=== PATIENT | male | born 1955 | race Hispanic/Latino ===

== ENCOUNTER 2018-08-24 16:13 | Inpatient (IN) | payer BC, SELFPAY ==
[2018-08-24 16:48] LABS: Absolute Monocytes 1.2 K/uL (0.1-1.3); Basophils % 0.6 % (0-1.3); Eosinophils % 0.9 % (0-4.4); Hematocrit 43.2 % (39.6-49.0); Lymphocytes % 12.7 % (15.3-44.8); MCH 31.3 pg (27.0-35.0); MCV 92.3 fL (80-100); MPV 7.7 fL (7.6-11.3); Monocytes % 7.6 % (3.3-12.3); RBC Red Blood Cell Count 4.69 M/uL (4.33-5.43)
[2018-08-24 16:52] LABS: Protime INR 1.04
--- NOTE | 2018-08-24 17:09 | RAD REPORT ---
EXAM DESCRIPTION: RAD - Chest Single View - 08/24/2018 4:42 pm CLINICAL HISTORY: Cough COMPARISON: January 2010 TECHNIQUE: AP portable chest image was obtained 1638 hours . FINDINGS: No peripheral mass consolidation. Lung markings are mildly prominent but not clearly diffe rent from comparison. Heart size within normal limits, decreased from prior study. Vasculature has di minished in prominence over this long interval. Trachea is midline. No measurable pleural effusion an d no pneumothorax. No gross bony abnormality seen. No acute aortic findings suspected. IMPRESSION: No acute cardiopulmonary process. Prominent interstitial pattern has not changed. Heart size and vasculature have decreased in prominence since 2009.
[2018-08-24 17:10] LABS: Albumin 4.5 g/dL (3.4-5.0); Bilirubin Direct 0.1 mg/dL (0-0.2); Bilirubin Total 0.3 mg/dL (0.2-1.0); Magnesium 2.7 mg/dL (1.8-2.4); Potassium 3.9 mmol/L (3.5-5.1); Protein, Total 8.9 g/dL (6.4-8.2); Troponin (Emerg Dept Use Only) 0.09 ng/mL (0.0-0.045)
--- NOTE | 2018-08-24 17:34 | ER ---
Nurse's Notes [facility] Name: Zac Sharma Age: 63 yrs Sex: Male : 1955 Arrival Date: 08/24/2018 Time: 16:17 Bed 6 Private MD: Diagnosis: Heat exhaustion, unspecified;Unspecified kidney failure;Volume depletion;Elevated white blood cell count Presentation: 08/24 16:18 Presenting complaint: EMS states: Was working out in yard and began to feel sick, was ph found by EMS inside on the floor, denies LOC, reports 1 episode of vomiting and cramping to roscoe legs, initial BP 80s/50s, BGL 143, 500 NS bolus given, pt reports having "heat exhaustion" before and states that symptoms feel similar. Transition of care: patient was not received from another setting of care. Onset of symptoms was August 24, 2018. Risk Assessment: Do you want to hurt yourself or someone else? Patient reports no desire to harm self or others. Initial Sepsis Screen: Does the patient meet any 2 criteria? No. Patient's initial sepsis screen is negative. Does the patient have a suspected source of infection? No. Patient's initial sepsis screen is negative. Care prior to arrival: None. 16:18 Method Of Arrival: EMS: [facility] ph 16:18 Acuity: BILL 3 ph Historical: - Allergies: 16:23 No Known Allergies; ph - Home Meds: 16:23 None [Active]; ph - PMHx: 16:23 None; ph - PSHx: 16:23 None; ph - Immunization history:: Adult Immunizations unknown. - Social history:: Smoking status: Patient/guardian denies using tobacco. - Ebola Screening: : No symptoms or risks identified at this time. - Family history:: not pertinent. Screenin:24 Abuse screen: Denies threats or abuse. Denies injuries from another. Nutritional aj screening: No deficits noted. Tuberculosis screening: No symptoms or risk factors identified. Fall Risk None identified. Assessment: 16:38 General: Appears in no apparent distress. uncomfortable, Behavior is calm, cooperative, ph appropriate for age. Pain: Complains of pain in right leg and left leg Quality of pain is described as crampy. Neuro: Level of Consciousness is awake, alert, obeys commands, Oriented to person, place, time, situation. Cardiovascular: Capillary refill < 3 seconds Patient's skin is warm and dry. Respiratory: Airway is patent Respiratory effort is even, unlabored. GI: Reports nausea, vomiting, Patient currently denies abdominal pain, diarrhea. Derm: Skin is intact, Skin is clammy, Skin temperature is cool. Musculoskeletal: Musculoskeletal: Circulation, motion, and sensation intact. Range of motion: intact in all extremities. 19:11 Reassessment: Patient appears in no apparent distress at this time. No changes from previously documented assessment. Patient and/or family updated on plan of care and expected duration. Pain level reassessed. Patient is alert, oriented x 3, equal unlabored respirations, skin warm/dry/pink. Patient denies pain at this time. Patient states feeling better. Vital Signs: 16:21 BP 118 / 54; Pulse 79; Resp 18; Temp 98.5; Pulse Ox 98% on R/A; Weight 79.38 kg; Height ph 5 ft. 6 in. (167.64 cm); 17:29 BP 108 / 68; Pulse 72; Resp 16; Pulse Ox 99% on R/A; aj 19:11 BP 133 / 79; Pulse 91; Resp 18; Pulse Ox 99% on R/A; aj 20:24 BP 137 / 79; Pulse 69; Resp 16; Pulse Ox 99% on R/A; aj 16:21 Body Mass Index 28.25 (79.38 kg, 167.64 cm) ph ED Course: 16:17 Patient arrived in ED. ph 16:18 Noah Craig MD is Attending Physician. mina 16:21 Triage completed. ph 16:23 Arm band placed on. ph 16:34 Belkis Almtan, RN is Primary Nurse. aj 16:41 X-ray completed. Portable x-ray completed in exam room. Patient tolerated procedure az well. 16:41 EKG done, by i&c technician. reviewed by Noah Craig MD. sm3 16:42 XRAY Chest (1 view) In Process Unspecified. EDMS 16:45 Maintain EMS IV. Site clean \\T\\ dry. Gauge \\T\\ site: 20 to left AC. Flushed left aj antecubital Patient transferred, IV remains in place. intact. 17:31 Marito Encarnacion MD is Hospitalizing Provider. mina 17:[address] via stretcher. nj 17:59 CT Stone Protocol In Process Unspecified. EDMT 17:59 CT completed. Patient tolerated procedure well. Patient moved back from CT. nj 20:24 Patient has correct armband on for positive identification. Bed in low position. aj 20:27 No provider procedures requiring assistance completed. aj Administered Medications: 16:44 Drug: NS 0.9% 1000 ml Route: IV; Rate: 1 bolus; Site: left antecubital; aj 20:29 Follow up: Response: No adverse reaction; IV Status: Completed infusion; IV Intake: aj 1000ml 16:44 Drug: NS 0.9% 1000 ml Route: IV; Rate: 1 bolus; Site: left antecubital; aj 20:29 Follow up: Response: No adverse reaction; IV Status: Completed infusion; IV Intake: aj 1000ml 17:35 Drug: Pepcid 20 mg Route: PO; aj 20:28 Follow up: Response: No adverse reaction aj 17:41 Drug: Aspirin 162 mg Route: PO; aj 20:28 Follow up: Response: No adverse reaction aj 17:41 Drug: Lovenox 60 mg Route: Sub-Q; Site: abdomen; aj 20:28 Follow up: Response: No adverse reaction kylah 17:45 CANCELLED (route changed): Pepcid 20 mg IVP once aj Intake: 20:29 IV: 1000ml; Total: 1000ml. aj 20:29 IV: 1000ml; Total: 2000ml. kylah Outcome: 16:45 Admitted to Med/surg accompanied by tech, via wheelchair, room 215, Report called to kylah Thorne RN 16:45 Condition: good 16:45 Instructed on the need for admit, Demonstrated understanding of instructions. 17:33 Decision to Hospitalize by Provider. mina 20:30 Patient left the ED. kylah 20:45 Patient left the ED. ms Signatures: Dispatcher [employer] Belkis Blanco RN Noah Pratt MD MD cha Solis, Maria ms Hall, Patricia, RN RN [facility], [facility] Keerthi Lagunas
--- NOTE | 2018-08-24 17:34 | EDPHYS ---
Physician Documentation [facility] Name: Zac Sharma Age: 63 yrs Sex: Male : 1955 Arrival Date: 08/24/2018 Time: 16:17 Bed 6 Private MD: ED Physician Noah Craig HPI: 08/24 17:30 This 63 yrs old Male presents to ER via EMS with complaints of Heat Exposure. mina 17:30 over heated. The patient presents with dizziness, feeling faint, generalized weakness, mina lightheadedness. Onset: The symptoms/episode began/occurred just prior to arrival, today. Context: occurred outdoors. Modifying factors: The symptoms are alleviated by nothing, the symptoms are aggravated by nothing. Associated signs and symptoms: Pertinent positives: abdominal pain, nausea, near-syncope, vomiting. Severity of symptoms: At their worst the symptoms were moderate. Historical: - Allergies: 16:23 No Known Allergies; ph - Home Meds: 16:23 None [Active]; ph - PMHx: 16:23 None; ph - PSHx: 16:23 None; ph - Immunization history:: Adult Immunizations unknown. - Social history:: Smoking status: Patient/guardian denies using tobacco. - Ebola Screening: : No symptoms or risks identified at this time. - Family history:: not pertinent. ROS: 17:30 Constitutional: Negative for fever, chills, and weight loss, Eyes: Negative for injury, mina pain, redness, and discharge, ENT: Negative for injury, pain, and discharge, Neck: Negative for injury, pain, and swelling, Cardiovascular: Negative for chest pain, palpitations, and edema, Respiratory: Negative for shortness of breath, cough, wheezing, and pleuritic chest pain, Abdomen/GI: Negative for abdominal pain, nausea, vomiting, diarrhea, and constipation, Back: Negative for injury and pain, : Negative for injury, bleeding, discharge, and swelling, MS/Extremity: Negative for injury and deformity, Skin: Negative for injury, rash, and discoloration, Neuro: Negative for headache, weakness, numbness, tingling, and seizure, Psych: Negative for depression, anxiety, suicide ideation, homicidal ideation, and hallucinations, Allergy/Immunology: Negative for hives, rash, and allergies, Endocrine: Negative for neck swelling, polydipsia, polyuria, polyphagia, and marked weight changes, Hematologic/Lymphatic: Negative for swollen nodes, abnormal bleeding, and unusual bruising. Exam: 17:31 Constitutional: This is a well developed, well nourished patient who is awake, alert, mina and in no acute distress. Head/Face: Normocephalic, atraumatic. Eyes: Pupils equal round and reactive to light, extra-ocular motions intact. Lids and lashes normal. Conjunctiva and sclera are non-icteric and not injected. Cornea within normal limits. Periorbital areas with no swelling, redness, or edema. ENT: Nares patent. No nasal discharge, no septal abnormalities noted. Tympanic membranes are normal and external auditory canals are clear. Oropharynx with no redness, swelling, or masses, exudates, or evidence of obstruction, uvula midline. Mucous membranes moist. Neck: Trachea midline, no thyromegaly or masses palpated, and no cervical lymphadenopathy. Supple, full range of motion without nuchal rigidity, or vertebral point tenderness. No Meningismus. Chest/axilla: Normal chest wall appearance and motion. Nontender with no deformity. No lesions are appreciated. Cardiovascular: Regular rate and rhythm with a normal S1 and S2. No gallops, murmurs, or rubs. Normal PMI, no JVD. No pulse deficits. Respiratory: Lungs have equal breath sounds bilaterally, clear to auscultation and percussion. No rales, rhonchi or wheezes noted. No increased work of breathing, no retractions or nasal flaring. Abdomen/GI: Soft, non-tender, with normal bowel sounds. No distension or tympany. No guarding or rebound. No evidence of tenderness throughout. Back: No spinal tenderness. No costovertebral tenderness. Full range of motion. Male : Normal genitalia with no discharge or lesions. Skin: Warm, dry with normal turgor. Normal color with no rashes, no lesions, and no evidence of cellulitis. MS/ Extremity: Pulses equal, no cyanosis. Neurovascular intact. Full, normal range of motion. Neuro: Awake and alert, GCS 15, oriented to person, place, time, and situation. Cranial nerves II-XII grossly intact. Motor strength 5/5 in all extremities. Sensory grossly intact. Cerebellar exam normal. Normal gait. Psych: Awake, alert, with orientation to person, place and time. Behavior, mood, and affect are within normal limits. Vital Signs: 16:21 BP 118 / 54; Pulse 79; Resp 18; Temp 98.5; Pulse Ox 98% on R/A; Weight 79.38 kg; Height ph 5 ft. 6 in. (167.64 cm); 17:29 BP 108 / 68; Pulse 72; Resp 16; Pulse Ox 99% on R/A; aj 19:11 BP 133 / 79; Pulse 91; Resp 18; Pulse Ox 99% on R/A; aj 20:24 BP 137 / 79; Pulse 69; Resp 16; Pulse Ox 99% on R/A; aj 16:21 Body Mass Index 28.25 (79.38 kg, 167.64 cm) ph MDM: 16:18 Patient medically screened. [facility] 08/24 16:19 Order name: Basic Metabolic Panel [facility] 08/24 16:19 Order name: CBC with Diff [facility] 08/24 16:19 Order name: LFT's [facility] 08/24 16:19 Order name: Magnesium [facility] 08/24 16:19 Order name: NT PRO-BNP; Complete Time: 17:17 [facility] 08/24 16:19 Order name: PT-INR; Complete Time: 17:17 [facility] 08/24 16:19 Order name: Troponin (emerg Dept Use Only); Complete Time: 17:17 [facility] 08/24 16:19 Order name: Lipase; Complete Time: 17:17 [facility] 08/24 16:20 Order name: Basic Metabolic Panel; Complete Time: 17:17 [facility] 08/24 16:20 Order name: CBC with Automated Diff; Complete Time: 17:17 [facility] 08/24 16:20 Order name: Liver (Hepatic) Function; Complete Time: 17:17 [facility] 08/24 16:20 Order name: Magnesium; Complete Time: 17:17 [facility] 08/24 17:56 Order name: CBC with Automated Diff [facility] 08/24 17:56 Order name: CBC with Automated Diff [facility] 08/24 16:19 Order name: XRAY Chest (1 view); Complete Time: 17:17 [facility] 08/24 17:28 Order name: CT Stone Protocol [facility] 08/24 17:38 Order name: Echo with Doppler [facility] 08/24 17:56 Order name: CBC with Automated Diff [facility] 08/24 17:56 Order name: Comprehensive Metabolic Panel [facility] 08/24 17:56 Order name: Comprehensive Metabolic Panel [facility] 08/24 17:56 Order name: Comprehensive Metabolic Panel [facility] 08/24 17:56 Order name: Urinalysis [facility] 08/24 17:57 Order name: Urinalysis W/Microscopic [facility] 08/24 20:43 Order name: Urine Dipstick--Ancillary (enter results) ms 08/24 16:19 Order name: EKG; Complete Time: 16:20 [facility] 08/24 16:19 Order name: Cardiac monitoring; Complete Time: 16:45 [facility] 08/24 16:19 Order name: EKG - Nurse/Tech; Complete Time: 16:45 [facility] 08/24 16:19 Order name: IV Saline Lock; Complete Time: 16:45 [facility] 08/24 16:19 Order name: Labs collected and sent; Complete Time: 16:45 [facility] 08/24 16:19 Order name: O2 Per Protocol; Complete Time: 16:45 [facility] 08/24 16:19 Order name: O2 Sat Monitoring; Complete Time: 16:45 [facility] 08/24 17:38 Order name: CONS Physician Consult [facility] 08/24 17:38 Order name: CONS Physician Consult [facility] 08/24 17:56 Order name: Renal EDFL Administered Medications: 16:44 Drug: NS 0.9% 1000 ml Route: IV; Rate: 1 bolus; Site: left antecubital; aj 20:29 Follow up: Response: No adverse reaction; IV Status: Completed infusion; IV Intake: aj 1000ml 16:44 Drug: NS 0.9% 1000 ml Route: IV; Rate: 1 bolus; Site: left antecubital; aj 20:29 Follow up: Response: No adverse reaction; IV Status: Completed infusion; IV Intake: aj 1000ml 17:35 Drug: Pepcid 20 mg Route: PO; aj 20:28 Follow up: Response: No adverse reaction aj 17:41 Drug: Aspirin 162 mg Route: PO; aj 20:28 Follow up: Response: No adverse reaction aj 17:41 Drug: Lovenox 60 mg Route: Sub-Q; Site: abdomen; aj 20:28 Follow up: Response: No adverse reaction aj 17:45 CANCELLED (route changed): Pepcid 20 mg IVP once aj Disposition: 08/24/18 17:33 Hospitalization ordered by Marito Encarnacion for Inpatient Admission. Preliminary diagnosis are Heat exhaustion, unspecified, Unspecified kidney failure, Volume depletion, Elevated white blood cell count. - Bed requested for Telemetry/MedSurg (Inpatient). - Status is Inpatient Admission. ms - Condition is Stable. - Problem is new. - Symptoms have improved. UTI on Admission? No Signatures: Dispatcher [employer] EDMS MeekNedUte, INTERNET SYSTEMS ADMINISTRATOR-C INTERNET SYSTEMS ADMINISTRATOR-Belkis Luke, RN RN Noah Thomas MD MD cha Sanford, Demi ds1 Bre Rogel ms Silvana Masters RN RN Lyly Toth RN RN cg Corrections: (The following items were deleted from the chart) 17:45 17:28 Pepcid 20 mg IVP once ordered. [facility] 19:32 17:33 Hospitalization Ordered by Marito Encarnacion MD for Inpatient Admission. Preliminary cg diagnosis is Heat exhaustion, unspecified; Unspecified kidney failure; Volume depletion; Elevated white blood cell count. Bed requested for Telemetry/MedSurg (Inpatient). Status is Inpatient Admission. Condition is Stable. Problem is new. Symptoms have improved. UTI on Admission? No. mina 20:17 19:32 08/24/2018 17:33 Hospitalization Ordered by Marito Encarnacion MD for Inpatient ds1 Admission. Preliminary diagnosis is Heat exhaustion, unspecified; Unspecified kidney failure; Volume depletion; Elevated white blood cell count. Bed requested for Telemetry/MedSurg (Inpatient). Status is Inpatient Admission. Condition is Stable. Problem is new. Symptoms have improved. UTI on Admission? No. cg 20:30 20:17 08/24/2018 17:33 Hospitalization Ordered by Marito Encarnacion MD for Inpatient aj Admission. Preliminary diagnosis is Heat exhaustion, unspecified; Unspecified kidney failure; Volume depletion; Elevated white blood cell count. Bed requested for Telemetry/MedSurg (Inpatient). Status is Inpatient Admission. Condition is Stable. Problem is new. Symptoms have improved. UTI on Admission? No. ds1 20:45 20:30 08/24/2018 17:33 Hospitalization Ordered by Marito Encarnacion MD for Inpatient ms Admission. Preliminary diagnosis is Heat exhaustion, unspecified; Unspecified kidney failure; Volume depletion; Elevated white blood cell count. Bed requested for Telemetry/MedSurg (Inpatient). Status is Inpatient Admission. Condition is Stable. Problem is new. Symptoms have improved. UTI on Admission? No. aj
[2018-08-24] MEDS ORDERED: ONDANSETRON 4 MG/2 ML VIAL IV PRN (17:53)
[2018-08-24] MEDS ORDERED: ACETAMINOPHEN 500 MG TAB PO PRN (17:53)
--- NOTE | 2018-08-24 18:20 | RAD REPORT ---
EXAM DESCRIPTION: CT - Stone Protocol - 08/24/2018 5:59 pm CLINICAL HISTORY: Abdominal pain. Lower abdominal pain. Urinary frequency COMPARISON: None. TECHNIQUE: Computed axial tomography of the abdomen pelvis was obtained without oral or IV contrast. Lack of IV and oral contrast limits evaluation of solid organs, bowel, and vessels. Coronal reformat susan images were obtained and reviewed. All CT scans are performed using dose optimization technique as appropriate and may include automated exposure control or mA/KV adjustment according to patient size. FINDINGS: A renal calculus is not seen. An ureteral calculus is not noted. A bladder calculus is not present. The liver, spleen, pancreas and adrenals appear grossly normal There is no evidence of diverticulitis. The appendix appears normal The prostate gland is mildly enlarged and contains calcification. Small bilateral inguinal hernias contain fat IMPRESSION: Negative for a genitourinary calculus
[2018-08-24] MEDS: ENOXAPARIN 30 MG/0.3 ML SQ SCH (20:00)
[2018-08-24 20:47] LABS: Urine Appearance TURBID; Urine Blood NEGATIVE (NEG); Urine Color YELLOW; Urine Glucose NEGATIVE (NEG); Urine Protein 2+ (NEG); Urine Specific Gravity 1.025 (1.005-1.030); Urine Urobilinogen 0.2 mg/dL (0.2-1.0); Urine pH 5.5 (5.0-7.0)
[2018-08-24 20:50] LABS: Urine Blood TRACE (NEG); Urine Glucose NEGATIVE (NEG); Urine Protein 2+ (NEG); Urine Specific Gravity 1.025 (1.005-1.030)
[2018-08-24 20:54] LABS: Urine Bilirubin NEGATIVE (NEG)
[2018-08-24] MEDS: NA CHLORIDE 0.9% 1,000 ML IV SCH (21:36)
[2018-08-24 21:48] LABS: Urine Amorphous Sediment 2+ /HPF (NONE SEEN); Urine Bacteria 20-50 /HPF (NONE SEEN); Urine Culture Reflex Order REFLEXED; Urine Mucus 1+ /HPF (NONE SEEN); Urine RBC <5 /HPF (NONE SEEN)
--- NOTE | 2018-08-24 23:08 | EKG ---
Test Date: 2018-08-24 Test Time: 16:33:52 Pipefitter Helper: JESSIKA MEASUREMENT RESULTS: Intervals: Rate: 63 NH: 158 QRSD: 90 QT: 386 QTc: 395 [place]: P: 59 NH: 158 QRS: 64 T: 56 INTERPRETIVE STATEMENTS: Normal sinus rhythm Normal ECG No previous ECG available for comparison Electronically Signed On 08-24-18 23:07:36 CDT by Juan Cage
--- NOTE | 2018-08-25 02:31 | HP ---
Date of Admission: 08/24/2018 Chief Complaint: Generalized malaise and weakness. Code Status: Full. Primary Care Physician: None. 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 The patien t did get dehydrated, stated that he had lost approximately 8 pounds at the end of the day after work and felt very dehydrated. The patient otherwise denies any fevers or chills. Does report some naus ea and one episode of vomiting. No abdominal pain. No chest pain. No shortness of breath. The pat ient's symptoms are constant, moderate, progressively worsening. No alleviating factors. Aggravated by outside work. The patient came into the ER for further evaluation. Upon arrival, initially he w as slightly hypotensive. Blood pressure was 118/54; however, he was not tachycardic. The patient wa s given IV fluid bolus. His lab workup revealed a creatinine of 2.6, which is elevated. His baselin e is usually normal. White blood cell count was 15.4. The patient was then referred for admission. When seen in the ER, he was awake, alert, oriented x3, in some mild distress. Past Medical History: None. Past Surgical History: None. Allergies: NO KNOWN DRUG ALLERGIES. Medications: Some [id number] multivitamins. Social History: The patient smokes 1 pack per day. Has been smoking for greater than 20 years. No alcohol use or illicit drug use. 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 Independent in his activities of daily living. Does not require any assistive ambul atory devices. Family History: Father has bladder cancer. Review of Systems: An 11-point system reviewed, negative except as per HPI. Physical Examination: Vital Signs: Blood pressure 118/54, pulse 79, respirations 18, temperature 98.5, O2 98% on room air. General: Awake, alert, oriented x3. Some mild distress. Ill-appearing male. HEENT: Normocephalic, atraumatic. PERRLA. EOMI. Dry mucous membranes. Oropharynx is clear. Norm al dentition. Conjunctiva is anicteric. Neck: Supple. No JVD. Trachea midline. CV: S1, S2. Regular rate and rhythm. Peripheral pulses are present. Respiratory: Moving air well bilaterally. No wheezing or stridor. No use of accessory muscles. Gastrointestinal: Abdomen is soft, nontender, nondistended. Positive bowel sounds. No guarding or rigidity. Extremities: No clubbing, cyanosis, or edema. No calf tenderness. Neuro: Cranial nerves 2 through 12 intact grossly. No focal neurological deficit. Speech is normal . No numbness or tingling. Skin: No rashes. Normal skin turgor. Psych: Mood is okay. Affect is full. Insight and judgment are good. Laboratory Data: Sodium 140, potassium 3.9, chloride 103, CO2 26, BUN 21, creatinine 2.6, glucose 12 0, calcium 9.8, magnesium 2.7. Troponin is 0.09. BNP 219. Albumin 4.5, lipase 160. WBC 15.4, H an d H 14.7 and 43.2, platelets 376, neutrophils 78%. INR 1.04. Chest x-ray, personally reviewed, show s no acute cardiopulmonary process, prominent interstitial pattern, not changed from previous. CT ab domen, stone protocol is pending. UA is not ordered yet. Assessment And Plan: A 63-year-old male with 1.Generalized weakness. 2.Generalize malaise. 3.Acute kidney injury, likely prerenal azotemia. 4.Hyperglycemia, likely reactive. We will check hemoglobin A1c if persistent. 5.Hypermagnesemia. 6.Elevated troponin level, likely due to demand mismatch. No chest pain. 7.Neutrophilic leukocytosis. We will check urinalysis to rule out acute cystitis. Chest x-ray is c lear. No infiltrate. May also be reactive. We will continue to monitor. No IV antibiotics indicat ed at this time. 8.Gastrointestinal and deep venous thrombosis prophylaxis with proton pump inhibitor and Lovenox walter ally dosed. Plan: Admit the patient to Med-Surg, place as inpatient. Dr. Gilliam has been consulted. Cardiolo gy was consulted by ER. I doubt any coronary syndrome. SA/MODL Voice ID: [id number]
[2018-08-25 05:12] LABS: Absolute Lymphocytes (CBC) 2.9 K/uL (0.7-4.9); Absolute Monocytes 0.9 K/uL (0.1-1.3); Absolute Neutrophil 5.8 K/uL (1.8-8.0); Basophils % 0.7 % (0-1.3); Eosinophils % 2.7 % (0-4.4); Hematocrit 36.9 % (39.6-49.0); Lymphocytes % 28.7 % (15.3-44.8); MCH 32.2 pg (27.0-35.0); Monocytes % 9.4 % (3.3-12.3); RBC Red Blood Cell Count 4.01 M/uL (4.33-5.43)
[2018-08-25] MEDS: NA CHLORIDE 0.9% 1,000 ML IV SCH ×3 (05:15→14:10)
[2018-08-25 05:32] LABS: Albumin 3.3 g/dL (3.4-5.0); Bilirubin Total 0.3 mg/dL (0.2-1.0); Phosphorus 3.5 mg/dL (2.5-4.9); Potassium 3.6 mmol/L (3.5-5.1); Protein, Total 6.7 g/dL (6.4-8.2); Thyroid Stimulating Hormone 1.65 uIU/mL (0.360-3.740); Uric Acid 6.3 mg/dL (3.5-7.2)
[2018-08-25 06:57] VITALS: BMI 29.0
--- NOTE | 2018-08-25 08:09 | RAD REPORT ---
EXAM DESCRIPTION: US - Renal Ultrasound-Complete - 08/25/2018 7:49 am CLINICAL HISTORY: Acute kidney injury COMPARISON: CT study August 24 FINDINGS: The right kidney measures 12.0 x 5.1 x 5.4 cm. The left kidney measures 11.8 x 5.9 x 5.6 cm. Renal cortical thickness and echogenicity are normal. No hydronephrosis or suspicious renal mass. No bladder wall thickening or mass. No intraluminal stone or mass. Partially imaged prostate gland shows calcifications along the superior margin with prominent contour projecting into the bladder base. IMPRESSION: No hydronephrosis or suspicious renal mass. Renal parenchymal echogenicity normal range. Prominent lobulated prostate gland projecting into the bladder base. Prostate calcifications are pres ent.
[2018-08-25] MEDS ORDERED: TAMSULOSIN 0.4 MG SR CAP PO SCH (09:43)
[2018-08-25] MEDS: ENOXAPARIN 30 MG/0.3 ML SQ SCH (10:12)
[2018-08-25 10:35] VITALS: TEMP 98.3
--- NOTE | 2018-08-25 13:43 | CON ---
Date of Consultation: 08/25/2018 Reason For Consultation: Elevated troponin. History Of Present Illness: Mr. Sharma is a 63-year-old very healthy male, who was working in the yard yesterday and he had an episode of dizziness, fainted, became hypotensive, was found to have rigo vated troponin. He came to the emergency room. He is now asymptomatic after hydration. He was foun d to have a creatinine of 2.60, white count of 15,000, troponin 0.09. Chest x-ray was negative. CPK was not drawn. Past Medical History: Negative. Allergies: NONE. Medications: None. Family History: Negative. Review of Systems: Negative. Social History: Negative. Physical Examination: Vital signs: Stable. Afebrile. HEENT: Negative. Neck: Supple with no bruit. Chest: Clear to auscultation and percussion. Cardiac: Exam revealed a regular rhythm and rate without any murmurs, gallops, or rubs. Abdomen: Benign. Extremities: Revealed no clubbing, cyanosis, or edema. Diagnostic Data: As stated earlier. Impression And Plan: I think the patient had dehydration from heat exhaustion, lowering his blood pr essure, elevating his troponin . He is obviously dehydrated and he needs to be hydrated we ll, but his creatinine is usually normal. We will be checking CPK to rule out rhabdomyolysis is reas onable, I did not see that. That is definitely more important than the troponin in him. Echocardiog yaz is pending. I think the echocardiogram is normal. His creatinine has improved and he can probab ly go home with p.o. hydration. CHARLIE/JUAN Voice ID: [id number] Report ID: [id number]
[2018-08-25 13:44] VITALS: BP 140/72
[2018-08-25 15:19] VITALS: O2SAT 94
--- NOTE | 2018-08-25 17:31 | ECHO ---
HEIGHT: 5 ft 6 in WEIGHT: 180 lb 5 oz DATE OF STUDY: 08/25/[address]: Noah Craig MD 2-DIMENSIONAL: YES M.MODE: YES DOPPLER: YES COLOR FLOW: YES TDS: PORTABLE: DEFINITY: BUBBLE STUDY: DIAGNOSIS: HYPOTENSION, HEAT EXHAUSTION, ELEVATED TROP. CARDIAC HISTORY: CATHERIZATION: NO SURGERY: NO PROSTHETIC VALVE: NO PACEMAKER: NO MEASUREMENTS (cm) DIASTOLIC (NORMALS) SYSTOLIC (NORMALS) IVSd 1.1 (0.6-1.2) LA Diam 3.8 (1.9-4.0) LVEF 60% LVIDd 4.9 (3.5-5.7) LVIDs 3.3 (2.0-3.5) %FS 32% LVPWd 1.1 (0.6-1.2) Ao Diam 3.2 (2.0-3.7) 2 DIMENSIONAL ASSESSMENT: RIGHT ATRIUM: NORMAL LEFT ATRIUM: NORMAL RIGHT VENTRICLE: NORMAL LEFT VENTRICLE: NORMAL TRICUSPID VALVE: NORMAL MITRAL VALVE: NORMAL PULMONIC VALVE: NORMAL AORTIC VALVE: NORMAL PERICARDIAL EFFUSION: NONE AORTIC ROOT: NORMAL LEFT VENTRICULAR WALL MOTION: NORMAL DOPPLER/COLOR FLOW: NORMAL COMMENTS: NORMAL TWO DIMENSIONAL ECHOCARDIOGRAM WITH DOPPLER. NO WALL MOTION ABNORMALITY. NO EFFUSION. TECHNOLOGIST: SHAE RUIZ
--- NOTE | 2018-08-26 03:52 | DS ---
Date of Discharge: 08/25/2018 Consultants: Dr. Gilliam, Nephrology; Dr. Saravia, Cardiology. Discharge Diagnoses: 1. Generalized weakness. 2. Generalized malaise. 3. Acute kidney injury, likely prerenal azotemia. 4. Acute dehydration. 5. Hyperglycemia. 6. Hypomagnesemia. 7. Elevated troponin level. 8. Benign prostatic hyperplasia. 9. Neutrophilic leukocytosis, resolved. Hospital Course: The patient is a 63-year-old male who was admitted for acute kidney injury, prerenal azotemia secondary to dehydration after working outside. 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 The patient was found to have elevated creatinine level of 2.6, white blood cell count was up to 15.4. No clear source of infection. UA was equivocal, however , no dysuria. The patient does have symptoms of benign prostatic hyperplasia including nocturia and incomplete bladder emptying with some dribbling. The patient was counseled on stopping liquid intake 2 hours prior to going to sleep. He will be started on Flomax. He understands that he can have his prostate level checked including PSA and digital rectal examination if he chooses to pursue further diagnostic evaluation of his prostate as there is always a risk of malignancy. The patient voiced understanding. He does go to the [facility] and agrees to follow up with their list of primary care providers and prescription assistance card was given. The patient improved over the course of the hospital stay. He was rehydrated with IV fluids. His weakness and malaise resolved. He is able to ambulate without any difficulty. His creatinine level decreased to 1.4. He was seen by Nephrology as well as Cardiology for mild troponin leak without any changes on EKG or have any chest pain. The patient was then cleared for discharge from hospice consultant's standpoint. Renal ultrasound showed no hydronephrosis or renal mass. Renal parenchymal echogenicity normal range. Did show a prominent lobulated prostate gland projecting into the bladder base. The patient was then discharged home in a stable condition. Activity: No strenuous activity. Return to work on Wednesday with good hydration and to keep hydrated as much as possible. Followup: Follow up with PCP in 2 to 3 days. Follow up with pyrotechnician, Dr. Gilliam in 2 weeks. Return to ER for worsening condition. Total time spent discharging the patient was 39 minutes. Physical Examination: General: Awake, alert, oriented x3. No acute distress. CV: S1, S2. No murmurs. Regular rate and rhythm. Peripheral pulses present. Respiratory: Moving air well bilaterally. Abdomen: Soft, nontender, nondistended. Positive bowel sounds. Extremities: No clubbing, cyanosis, or edema. Neurologic: Nonfocal. /JUAN Voice ID: [id number] Report ID: [id number] [facility]
== END 2018-08-25 15:37 | disposition home or self-care (01) | DRG 684 ==
LOC: ER 16:13 → ERHOLD 17:34 → 2ND 20:12
PROVIDERS: ADMIT Family Medicine; ATTEND Family Medicine
DX: N17.9 Acute kidney failure, unspecified (principal); E86.0 Dehydration; R73.9 Hyperglycemia, unspecified; E83.42 Hypomagnesemia; N40.0 Benign prostatic hyperplasia without lower urinary tract symptoms; D72.828 Other elevated white blood cell count; R53.1 Weakness; R53.81 Other malaise; I95.9 Hypotension, unspecified; F17.210 Nicotine dependence, cigarettes, uncomplicated
CPT/HCPCS: 36415; 71045; 74176; 76377; 76770; 80048; 80053; 80069; 80076; 81001; 81003; 83690; 83735; 83880; 83970; 84443; 84484; 84550; 85025; 85610; 87086; 87088; 93005; 93306; 94760; 96360; 96361; 96372; 99285; J1650; J7030